=== PATIENT | male | born 1955 | race Caucasian/White ===

== ENCOUNTER 2022-04-25 15:22 | Emergency (ER) | payer OTHER, SELFPAY ==
--- NOTE | 2022-04-25 15:27 | ED.URI ---
HPI - URI/Sore Throat General Chief Complaint: Upper Respiratory Infection Stated Complaint: cold symptoms Time Seen by Provider: 04/25/22 15:27 Source: patient, family and RN notes reviewed History of Present Illness HPI Narrative: Patient is 66-year-old male who presents the urgent care with his spouse with complaints of head cold, ear pressure and cough. Patient states that the Mucinex seems to be helping however he needs something to make it go faster so he can get back to work . Patient states that he had 2 negative COVID test at home with the last test being yesterday. Patient states his symptoms started on Sunday. Denies any shortness of breath, nausea, vomiting, chest pain. Denies any known exposures. Patient denies of any fever or history of sinus surgeries. No other acute complaints. No acute distress noted. Patient and spouse aware of the plan of care. Some parts of this dictation were generated by voice recognition software and may contain typographical and/or grammatical inaccuracies. Related Data Home Medications Medication Instructions Recorded Confirmed atorvastatin 10 mg tablet 10 mg PO DAILY 06/06/21 08/04/21 metformin 500 mg tablet 500 mg PO BID 06/06/21 08/04/21 saxagliptin 5 mg tablet (Onglyza) 5 mg PO DAILY 06/06/21 08/04/21 Allergies Allergy/AdvReac Type Severity Reaction Status Date / Time No Known Allergies Allergy Verified 08/04/21 08:55 Review of Systems Review of Systems: CONSTITUTIONAL: Denies fever, chills, or sweats. EYES: Denies visual changes, redness, or discharge. ENT: Denies rhinorrhea, congestion, sore throat. Reports bilateral ear pressure CARDIOVASCULAR: Denies chest pain, palpitations, or edema. RESPIRATORY: Reports of cough without dyspnea GASTROINTESTINAL: Denies abdominal pain, nausea, vomiting, or diarrhea. GENITOURINARY: Denies dysuria or hematuria. SKIN: Denies rash or itching. MUSCULOSKELETAL: Denies back pain, joint pain, or myalgia. NEUROLOGIC: Denies headache, numbness, or weakness. All other systems reviewed are negative, except as documented in HPI. [facility] Past Medical History Medical History Diabetes mellitus Hypercholesterolemia Surgical History Surgical History History of excision of lesion right upper back skin lesion 07/19/22 Family History Family History Father Diabetes mellitus Skin cancer of nose Mother Ovarian cancer Sibling Malignant neoplasm of prostate Bladder cancer Esophageal cancer Social History Social History Smoking packs per day: 1 Smoking cigarettes per day: 20.0 Years smoked: 40 Smoking pack-years: 40.00 Smoking status: Never smoker Tobacco type: cigarettes Smoking end date: 12/21/20 Alcohol intake: current Comments At the time of my signature, I reviewed and agree with the nursing past medical, surgical, social, and family history. There is no relevant family history pertinent to the patient complaint. Exam Narrative: GENERAL: This is a well-nourished, well-developed patient, in no apparent distress. HEAD: normocephalic, atraumatic. EYES: PERRL. Sclera clear/white. Vision is grossly intact. EARS: External ears normal, auditory canals clear and without drainage, TMs normal without perforation. Hearing grossly intact. NOSE: External nose normal with no obvious nasal discharge, nares without redness, clear rhinorrhea. THROAT: Mucous membranes moist. Moderate postnasal drainage NECK: Neck supple, non-tender without lymphadenopathy CARDIOVASCULAR: Regular rate and rhythm without murmurs, gallops, or rubs. RESPIRATORY: Mild loose cough noted on exam. Clear to auscultation. Breath sounds equal bilaterally. No wheezes, rales, or rhonchi. SKIN: warm, intac
[2022-04-25 15:28] VITALS: BP 140/90; PULSE 99; RESP 20; TEMP 37.1; O2SAT 95
== END 2022-04-25 15:50 | disposition home or self-care (01) ==
PROVIDERS: Emergency Provider Nurse Practitioner Family
DX: J06.9 Acute upper respiratory infection, unspecified (principal); F17.210 Nicotine dependence, cigarettes, uncomplicated; E11.9 Type 2 diabetes mellitus without complications; E78.00 Pure hypercholesterolemia, unspecified; Z79.84 Long term (current) use of oral hypoglycemic drugs
CPT/HCPCS: 99213; G0463

== ENCOUNTER 2022-11-15 15:52 | Outpatient (CLI) | payer OTHER, SELFPAY ==
--- NOTE | ~2022-11-15 | CT_ITS ---
CT Scan of the Chest without Contrast: Clinical Indication: Other nonspecific abnormal finding of lung field, persistent right middle lobe i nfiltrate Technique: Contiguous sections were acquired throughout the chest without intravenous contrast. Dose reduction technique was used on this scan by utilizing automated exposure control and iterative recon struction technique. The dose-length product (DLP) was 228.15 mGy-cm. Findings: There is no evidence of any significant mediastinal, hilar or axillary lymphadenopathy. The mediastin al soft tissues appear normal. There is no evidence of pleural or pericardial effusion. There is moderate emphysema. There is chronic appearing atelectasis or scarring at the anteromedial r ight middle lobe. There is an 8 mm irregular nodular opacity at the left lower lobe (axial image 80). Images through the upper abdomen reveal no abnormalities. Impression: Moderate emphysema. Chronic appearing atelectasis or scarring at the anteromedial right middle lobe. 8 mm left lower lobe pulmonary nodule, as detailed above. According to Fleischner Society criteria, f or a low-risk patient, recommend 6-12 month follow-up CT, then consider additional 18-[address] Fo r a high-risk patient, follow-up CT scans at 6-12 months and at 18-24 months are recommended. Reviewed, dictated and finalized at location M. Impression: Moderate emphysema. Chronic appearing atelectasis or scarring at the anteromedial right middle lobe . 8 mm left lower lobe pulmonary nodule, as detailed above. According to Fleischn er Society criteria, for a low-risk patient, recommend 6-12 month follow-up CT, then consider additional 18-[address] For a high-risk patient, follow-up CT scans at 6-12 months and at 18-24 months are recommended.
== END 2022-11-15 15:53 ==
PROVIDERS: PCP Nurse Practitioner Family; Visit Provider Nurse Practitioner Family
DX: J43.9 Emphysema, unspecified (principal); J98.11 Atelectasis; R91.1 Solitary pulmonary nodule
CPT/HCPCS: 71250

== ENCOUNTER → 2023-07-26 14:53 | Outpatient (CLI) | payer OTHER, SELFPAY ==
--- NOTE | ~2023-07-26 | CT_ITS ---
EXAMINATION:CT diagnostic chest wo con DATE: 07/26/2023 15:05 INDICATION: Solitary pulmonary nodule. TECHNIQUE: Computed tomography (CT) of the chest was performed without intravenous contrast. Automate d exposure control and iterative reconstruction technique were employed. The dose-length product (DLP ) was 70.61 mGy-cm. COMPARISON: Chest CT 11/15/2022 FINDINGS: There is severe emphysema. There is minimal atelectasis bilaterally. There is a 3 mm nodule in left upper lobe, likely benign. No pleural effusion. The heart size is normal. There are coronary artery calcifications. No pericardial effusion. There is mild chronic anterior wedging of multiple t horacic vertebral bodies. There is severe mid thoracic spondylosis. IMPRESSION: 1. Interval resolution of the previously described left lower lobe pulmonary nodule. 2. Severe emphysema. Reviewed, dictated and finalized at location E. CO ARTIST IMPRESSION: 1. Interval resolution of the previously described left lower lobe pulmonary no dule. 2. Severe emphysema.
== END ==
PROVIDERS: PCP Nurse Practitioner Family; Visit Provider Nurse Practitioner Family
DX: R91.1 Solitary pulmonary nodule (principal); J43.9 Emphysema, unspecified
CPT/HCPCS: 71250

== ENCOUNTER 2023-11-30 17:57 | Emergency (ER) | payer OTHER, SELFPAY ==
[2023-11-30 18:14] VITALS: BP 119/76; PULSE 67; RESP 18; TEMP 35.9; O2SAT 96
--- NOTE | 2023-11-30 18:35 | ED.SKABFB ---
HPI - Skin/Abscess/Foreign Bdy General Chief complaint: Skin/Abscess/Foreign Body Stated complaint: suture removal Source: patient Mode of arrival: ambulatory Limitations: no limitations History of Present Illness HPI narrative: 67-year-old male presented for suture removal. Endorses 2 weeks ago had skin cancer lesion removed from the left forearm. Also states attempted to remove the sutures, she was able to remove 4, but some are embedded. Denies redness, swelling, drainage or fever. Related Data Allergies Allergy/AdvReac Type Severity Reaction Status Date / Time No Known Allergies Allergy Verified 11/30/23 18:25 Review of Systems Review of Systems: CONSTITUTIONAL: Denies body aches, fever, chills, or sweats. EYES: Denies visual changes, redness, or discharge. ENT: Denies rhinorrhea, congestion CARDIOVASCULAR: Denies chest pain, palpitations, or edema. RESPIRATORY: Denies cough or dyspnea. GASTROINTESTINAL: Denies abdominal pain, nausea, vomiting, or diarrhea. SKIN: sutures to be removed LFA MUSCULOSKELETAL: Denies back pain, joint pain, or myalgia. NEUROLOGIC: Denies headache, numbness, tingling, or weakness. [facility] Past Medical History Medical History Diabetes mellitus Hypercholesterolemia Surgical History Surgical History History of excision of lesion right upper back skin lesion 07/19/22 Family History Family History Father Diabetes mellitus Skin cancer of nose Mother Ovarian cancer Sibling Malignant neoplasm of prostate Bladder cancer Esophageal cancer Social History Social History Years smoked: 40 Smoking status: Never smoker Smoking end date: 12/21/20 Alcohol intake: current Lack of Transportation: No Lack of Food: Never True Current Housing: I Have Housing Concerned About Future Housing: No Difficulty Paying Gas/Electric Bills: No Difficulty Paying for Meds: No Currently Unemployed: No Education: Bachelor's Degree Difficulty w/ Childcare or Family Care: No Living arrangements: with family Occupation/Education: occupation Additional occupation/education comments: [employer] Gender identity (if verbalized by the patient): Male Agree to blood products: Yes Comments At time of signature, I have reviewed and agree with nursing past medical, surgical, social and family history unless otherwise noted. Please see nursing chart for further information. There is no relevant family history pertinent to the presenting complaint Exam Narrative: GENERAL: Well-appearing ENT: Mucous membranes moist. Oropharynx without edema, erythema or lesions. CHEST: Clear to auscultation. HEART: Regular rate and rhythm. SKIN: Warm, dry. Left distal forearm with 4 sutures remaining to incision wound, appears healing, edges not approximated at center wound bed pink, no active drainage. NEURO: Alert and oriented x3. Course Course Emergency Course: Patient is aware of diagnosis, understands and agrees to treatment plan. Anticipatory guidance given. Patient agrees to follow-up as directed and is aware of reasons to seek care at the emergency department. Portions of this record may have been created with voice recognition software Level of Care: Express Care Visit Vital Signs Vital signs: Vital Signs Temperature 96.6 F L 11/30/23 18:14 Pulse Rate 67 11/30/23 18:14 Respiratory Rate 18 11/30/23 18:14 Blood Pressure 119/76 11/30/23 18:14 Pulse Oximetry 96 11/30/23 18:14 Oxygen Delivery Room Air 11/30/23 18:14 Temperature 96.6 F L 11/30/23 18:14 Pulse Rate 67 11/30/23 18:14 Respiratory Rate 18 11/30/23 18:14 Blood Pressure 119/76 11/30/23 18:14 Pulse Oximetry
== END 2023-11-30 19:04 | disposition home or self-care (01) ==
PROVIDERS: Emergency Provider Nurse Practitioner Family
DX: Z48.02 Encounter for removal of sutures (principal); Z85.828 Personal history of other malignant neoplasm of skin; E11.9 Type 2 diabetes mellitus without complications; E78.00 Pure hypercholesterolemia, unspecified
CPT/HCPCS: 99211; G0463

== ENCOUNTER 2023-12-16 08:11 | Emergency (ER) | payer OTHER, SELFPAY ==
[2023-12-16 08:23] VITALS: BP 128/80; PULSE 70; RESP 18; TEMP 36.3; O2SAT 99
[2023-12-16] MEDS: FLUORESCEIN SOD 1 MG/STRIP RIGHT EYE (08:43)
[2023-12-16] MEDS: TETRACAINE HCL 0.5% OPHTH SOLN 4 ML BTL 1 DROP RIGHT EYE (08:43)
[2023-12-16] MEDS: DACRIOSE EYE IRRIGATION 118 ML BOTTLE RIGHT EYE (08:43)
--- NOTE | 2023-12-16 08:52 | ED.EYEPROB ---
HPI - Eye Problem General Chief complaint: Eye Problems Stated complaint: something in rt eye Time Seen by Provider: 12/16/23 08:39 Source: patient and RN notes reviewed Mode of arrival: ambulatory Limitations: no limitations History of Present Illness HPI Narrative: Patient presents today complaining of possible foreign body to the right eye since yesterday after he was mulching at home. He has tried flushing copiously with water without relief of symptoms. Denies vision changes or drainage. He does wear glasses. Visual acuity upon arrival was right eye 20/25, left eye 20/30 with glasses. Related Data Allergies Allergy/AdvReac Type Severity Reaction Status Date / Time No Known Allergies Allergy Verified 12/16/23 08:27 Review of Systems Review of Systems: CONSTITUTIONAL: Denies body aches, fever, chills, or sweats. EYES: Denies visual changes, redness, or discharge.+ right eye foreign body sensation ENT: Denies rhinorrhea, congestion, sore throat, or otalgia. CARDIOVASCULAR: Denies chest pain, palpitations, or edema. RESPIRATORY: Denies cough or dyspnea. GASTROINTESTINAL: Denies abdominal pain, nausea, vomiting, or diarrhea. GENITOURINARY: Denies dysuria or hematuria. SKIN: Denies rash, itching, or wounds. MUSCULOSKELETAL: Denies back pain, joint pain, or myalgia. NEUROLOGIC: Denies headache, numbness, tingling, or weakness. PSYCH: Denies depression or anxiety. [facility] Past Medical History Medical History Diabetes mellitus Hypercholesterolemia Surgical History Surgical History History of excision of lesion right upper back skin lesion 07/19/22 Family History Family History Father Diabetes mellitus Skin cancer of nose Mother Ovarian cancer Sibling Malignant neoplasm of prostate Bladder cancer Esophageal cancer Social History Social History Years smoked: 40 Smoking status: Never smoker Smoking end date: 12/21/20 Alcohol intake: current Lack of Transportation: No Lack of Food: Never True Current Housing: I Have Housing Concerned About Future Housing: No Difficulty Paying Gas/Electric Bills: No Difficulty Paying for Meds: No Currently Unemployed: No Education: Bachelor's Degree Difficulty w/ Childcare or Family Care: No Living arrangements: with family Occupation/Education: occupation Additional occupation/education comments: [employer] Gender identity (if verbalized by the patient): Male Agree to blood products: Yes Comments At time of signature, I have reviewed and agree with nursing past medical, surgical, social and family history unless otherwise noted. Please see nursing chart for further information. There is no relevant family history pertinent to the presenting complaint Exam Narrative: GENERAL: Well-appearing, well-nourished, and in no acute distress. HEAD: Normocephalic, atraumatic. EYES: EOMI. PERRL. No redness or drainage. Conjunctivae normal. Right eye: Fluorescein uptake. See procedure note. Left eye normal ENT: Mucous membranes pink and moist. NECK: Normal AROM. CHEST: No respiratory distress. EXTREMITIES: Normal range of motion. No edema. SKIN: Warm, dry, no rash. Capillary refill normal. Normal skin turgor. NEURO: No focal deficits. Alert and oriented x3. Gait steady. PSYCH: Normal affect. No signs of depression or anxiety. Course Course Level of Care: Express Care Visit Vital Signs Vital signs: Vital Signs Temperature 97.4 F L 12/16/23 08:23 Pulse Rate 70 12/16/23 08:23 Respiratory Rate 18 12/16/23 08:23 Blood Pressure 128/80 12/16/23 08:23 Pulse Oximetry 99 12/16/23 08:23 Oxygen Delivery Room Air 12/16/23 08:23 Te
== END 2023-12-16 08:58 | disposition home or self-care (01) ==
PROVIDERS: Emergency Provider Nurse Practitioner
DX: S05.01XA Injury of conjunctiva and corneal abrasion without foreign body, right eye, initial encounter (principal); X58.XXXA Exposure to other specified factors, initial encounter; E11.9 Type 2 diabetes mellitus without complications; E78.00 Pure hypercholesterolemia, unspecified; Z87.891 Personal history of nicotine dependence
CPT/HCPCS: 99213; A9270; G0463

== ENCOUNTER 2024-08-10 11:44 | Emergency (ER) | payer OTHER, SELFPAY ==
[2024-08-10 11:55] VITALS: BP 115/79; PULSE 79; RESP 16; TEMP 36.9; O2SAT 97
--- NOTE | 2024-08-10 12:44 | ED.URI ---
HPI - URI/Sore Throat General Chief Complaint: Upper Respiratory Infection Stated Complaint: Cold Symptoms Time Seen by Provider: 08/10/24 12:21 Source: patient and RN notes reviewed Mode of arrival: ambulatory Limitations: no limitations History of Present Illness HPI Narrative: Patient presents today with a 3 day history of nasal congestion, productive cough, headache, ear pain. Denies sore throat, fever, shortness of breath, chest pain. He has been taking some Sudafed with mild relief. History of diabetes for which he takes Jardiance and Onglyza as well as emphysema. States his was sick last week and likely spread her illness to him. She recently got a prescription for Medrol Dosepak and a Z-Juan. He is requesting a prescription for both. Patient did a home COVID test that was negative Related Data Allergies Allergy/AdvReac Type Severity Reaction Status Date / Time No Known Allergies Allergy Verified 08/10/24 12:04 Review of Systems Review of Systems: CONSTITUTIONAL: Denies body aches, fever, chills, or sweats. EYES: Denies visual changes, redness, or discharge. ENT: Denies rhinorrhea, sore throat. + congestion, bilateral ear pain CARDIOVASCULAR: Denies chest pain, palpitations, or edema. RESPIRATORY: Denies dyspnea.+ cough GASTROINTESTINAL: Denies abdominal pain, nausea, vomiting, or diarrhea. GENITOURINARY: Denies dysuria or hematuria. SKIN: Denies rash, itching, or wounds. MUSCULOSKELETAL: Denies back pain, joint pain, or myalgia. NEUROLOGIC: Denies numbness, tingling, or weakness.+ headache PSYCH: Denies depression or anxiety. [facility] Past Medical History Medical History Basal cell carcinoma of upper back Hypercholesterolemia Diabetes mellitus Surgical History Surgical History History of excision of lesion right upper back skin lesion 07/19/22 Family History Family History Father Diabetes mellitus Skin cancer of nose Mother Ovarian cancer Sibling Malignant neoplasm of prostate Bladder cancer Esophageal cancer Social History Social History Years smoked: 40 Smoking status: Never smoker Smoking end date: 12/21/20 Alcohol intake: current Lack of Transportation: No Lack of Food: Never True Current Housing: I Have Housing Concerned About Future Housing: No Difficulty Paying Gas/Electric Bills: No Difficulty Paying for Meds: No Currently Unemployed: No Education: Bachelor's Degree Difficulty w/ Childcare or Family Care: No Living arrangements: with family Occupation/Education: occupation Additional occupation/education comments: [employer] Gender identity (if verbalized by the patient): Male Agree to blood products: Yes Comments At time of signature, I have reviewed and agree with nursing past medical, surgical, social and family history unless otherwise noted. Please see nursing chart for further information. There is no relevant family history pertinent to the presenting complaint Exam Narrative: GENERAL: Well-appearing, well-nourished, and in no acute distress. HEAD: Normocephalic, atraumatic. EYES: EOMI. No redness or drainage. Conjunctivae normal. ENT: Mucous membranes pink and moist. Nares congested. Bilateral nasal turbinates are erythematous and mildly edematous. TMs normal bilaterally. Throat normal. Uvula midline. NECK: Normal AROM. Supple. No lymphadenopathy. CHEST: No respiratory distress. Clear to auscultation. HEART: Regular rate and rhythm. No murmur appreciated. EXTREMITIES: Normal range of motion. No edema. SKIN: Warm, dry, no rash. Capillary refill normal. Normal skin turgor. NEURO: No focal deficits. Alert and oriented x3. Gait steady. PSYCH: Normal affect. No signs of depression or anxiety. Course Course Level of Care: Express Care Visit Vital Signs Vital signs: Vital Signs Temperature 98.4 F 08/10/24 11:55 Pulse Rate 79 08/10/24 11:55 Respiratory Rate 16 08/10/24 11:55 Blood Pressure 115/79 08/10/24 11:55 Pulse Oximetry 97 08/10/24 11:55 Temperature 98.4 F 08/10/24 11:55 Pulse Rate 79 08/10/24 11:55 Respiratory Rate 16 08/10/24 11:55 Blood Pressure 115/79 08/10/24 11:55 Pulse Oximetry 97 08/10/24 11:55 Reviewed MDM - URI/Sore Throat MDM Narrative Medical decision making narrative: Patient declines testing for influenza. Discussed [id number] medication use and duration of illness. Discussed hyperglycemia side effect of prednisone. He declines prescription at this time. Discussed that symptoms are likely viral in etiology, and when to follow-up if symptoms persist. Patient agrees with plan. Anticipatory guidance given. ED precautions given. Differential Diagnosis Differential diagnosis: Likely upper respiratory infection, otitis media, sinusitis, viral infection and bronchitis Critical Care Time Critical Care Time Critical Care Time: No Discharge Plan Discharge Clinical Impression: Upper respiratory infection Qualifiers: URI type: unspecified URI Qualified Code(s): J06.9 - Acute upper respiratory infection, unspecified Patient Disposition: Home, Self-Care Condition: Stable Instructions: Upper Respiratory Infection (DC) Additional Instructions: Your symptoms are likely due to a viral illness, which is not treated with antibiotics. Virus symptoms can last for up to 7-10days. Take Tylenol or ibuprofen for pain or fever. Consider a decongestant such as Sudafed and a steroid nasal spray such as Flonase to help with your congestion. Rest and stay hydrated. Follow up with your PCP in 7 days if symptoms are not improving. Go to the ER immediately if you develop shortness of breath, difficulty swallowing, or any other concerning symptoms. Patient Language: Palestinian Prescriptions: No Action (DME) blood-glucose meter Misc See Rx Instructions .MEDSUPPLY Qty: 1 0RF Rx Instructions: As directed (DME) lancets Misc See Rx Instructions .MEDSUPPLY Qty: 100 2RF Rx Instructions: Use once daily to check blood sugar (DME) OneTouch Ultra Test Strip See Rx Instructions .ROUTE .COMPLEX Qty: 100 1RF Dose Instruction: CHECK BLOOD SUGAR DAILY Rx Instructions: CHECK BLOOD SUGAR DAILY Jardiance 25 mg tablet See Rx Instructions .ROUTE .COMPLEX Qty: 90 1RF Dose Instruction: TAKE 1 TABLET BY MOUTH EVERY MORNING Rx Instructions: TAKE 1 TABLET BY MOUTH EVERY MORNING atorvastatin 20 mg tablet See Rx Instructions .ROUTE .COMPLEX Qty: 90 1RF Dose Instruction: TAKE 1 TABLET BY MOUTH EVERY DAY AT BEDTIME Rx Instructions: TAKE 1 TABLET BY MOUTH EVERY DAY AT BEDTIME fluticasone propion-salmeterol [Wixela Inhub] 250-50 mcg/dose blister with device 1 inh inhalation BID Qty: 60 0RF metformin 500 mg tablet extended release 24 hr 1,000 mg PO BID Qty: 360 1RF Onglyza 5 mg tablet 5 mg PO DAILY Qty: 90 0RF Follow-up/Referrals: PHYSICIAN,EXPORT CLERK [Primary Care Provider] - Time of Disposition: 12:32
== END 2024-08-10 12:38 | disposition home or self-care (01) ==
PROVIDERS: Emergency Provider Nurse Practitioner
DX: J06.9 Acute upper respiratory infection, unspecified (principal); E11.9 Type 2 diabetes mellitus without complications; Z79.84 Long term (current) use of oral hypoglycemic drugs; J43.9 Emphysema, unspecified; E78.00 Pure hypercholesterolemia, unspecified; Z85.828 Personal history of other malignant neoplasm of skin; Z87.891 Personal history of nicotine dependence
CPT/HCPCS: 99211; G0463

== ENCOUNTER 2024-09-10 11:01 | Emergency (ER) | payer OTHER, SELFPAY ==
[2024-09-10 11:11] VITALS: BP 114/76; PULSE 80; RESP 16; TEMP 36.6; O2SAT 98
--- NOTE | 2024-09-10 11:25 | ED_ITS ---
HPI - URI/Sore Throat General Chief Complaint: Upper Respiratory Infection Stated Complaint: CHEST COLD Time Seen by Provider: 09/10/24 11:25 Source: patient Mode of arrival: ambulatory Limitations: no limitations History of Present Illness HPI Narrative: 68-year-old male presents with complaint of cough and chest congestion for 2 days. Afebrile. No chest pain or shortness of breath. Does not want any COVID or influenza testing. Patient is concerned that chest congestion is going to go up into his sinuses 9 cause sinus infection. Requesting antibiotic prior to going out of town. All systems reviewed and negative except as noted above. Related Data Allergies Allergy/AdvReac Type Severity Reaction Status Date / Time No Known Allergies Allergy Verified 09/10/24 11:13 Review of Systems Review of Systems: CONSTITUTIONAL: Denies fever, chills, or sweats. Reports fatigue. EYES: Denies visual changes, redness, or discharge. ENT: Denies rhinorrhea, congestion, sore throat, or otalgia. CARDIOVASCULAR: Denies chest pain, palpitations, or edema. RESPIRATORY: Reports cough, chest congestion. Denies dyspnea. GASTROINTESTINAL: Denies abdominal pain, nausea, vomiting, or diarrhea. GENITOURINARY: Denies dysuria or hematuria. SKIN: Denies rash or itching. MUSCULOSKELETAL: Denies back pain, joint pain, or myalgia. NEUROLOGIC: Denies headache, numbness, or weakness. PSYCHIATRIC: Denies anxiety or depression. All other systems reviewed are negative, except as documented in HPI. [facility] Past Medical History Medical History Basal cell carcinoma of upper back Hypercholesterolemia Diabetes mellitus Surgical History Surgical History History of excision of lesion right upper back skin lesion 07/19/22 Family History Family History Father Diabetes mellitus Skin cancer of nose Mother Ovarian cancer Sibling Malignant neoplasm of prostate Bladder cancer Esophageal cancer Social History Social History Years smoked: 40 Smoking status: Never smoker Smoking end date: 12/21/20 Alcohol intake: current Lack of Transportation: No Lack of Food: Never True Current Housing: I Have Housing Concerned About Future Housing: No Difficulty Paying Gas/Electric Bills: No Difficulty Paying for Meds: No Currently Unemployed: No Education: Bachelor's Degree Difficulty w/ Childcare or Family Care: No Living arrangements: with family Occupation/Education: occupation Additional occupation/education comments: [employer] Gender identity (if verbalized by the patient): Male Agree to blood products: Yes Comments At time of signature, agree with nursing past medical, surgical, social and family history. There is no relevant family history pertinent to the presenting complaint. Exam Narrative: GENERAL: This is a well-nourished, well-developed patient, in no apparent distress. HEAD: normocephalic, atraumatic. EYES: PERRL. Sclera clear/white. Vision is grossly intact. EARS: External ears normal, auditory canals clear and without drainage, TMs normal without perforation. Hearing grossly intact. NOSE: External nose normal with no obvious nasal discharge, nares without redness, no rhinorrhea. THROAT: Mucous membranes moist, posterior pharynx clear. NECK: Neck supple, non-tender without lymphadenopathy, masses or thyromegaly. CARDIOVASCULAR: Regular rate and rhythm without murmurs, gallops, or rubs. RESPIRATORY: Clear to auscultation. Breath sounds equal bilaterally. No wheezes, rales, or rhonchi. SKIN: warm, Dry, intact with no suspicious lesions or rash, good texture and turgor. NEURO: awake, alert, and oriented to person, place and time. There were no obvious focal neurologic abnormalities. EXTREMITIES: No joint tenderness, effusion, or edema noted. Course Course Level of Care: Express Care Visit Vital Signs Vital signs: Vital Signs Temperature 36.6 C 09/10/24 11:11 Pulse Rate 80 09/10/24 11:11 Respiratory Rate 16 09/10/24 11:11 Blood Pressure 114/76 09/10/24 11:11 Pulse Oximetry 98 09/10/24 11:11 Temperature 36.6 C 09/10/24 11:11 Pulse Rate 80 09/10/24 11:11 Respiratory Rate 16 09/10/24 11:11 Blood Pressure 114/76 09/10/24 11:11 Pulse Oximetry 98 09/10/24 11:11 Reviewed MDM - URI/Sore Throat MDM Narrative Medical decision making narrative: Patient is well-appearing. Lungs clear to auscultation. Afebrile. Refusing COVID and influenza testing. Patient admit that he is prescribed an antibiotic to treat his cough. Antibiotic education given. Please be advised this is a medical document. It is intended for [id number] communication. It is written in medical language and may contain unfamiliar abbreviations or verbiage. Medical documents are intended to carry relevant information, facts as evident, and the clinical opinion of the practitioner at the time of the encounter. This report may have been done utilizing a voice recognition system. Attempts have been made to correct errors. However, there may be uncorrected grammatical, spelling, and recognition errors present. The file time of this note does not necessarily represent the time of service. Differential Diagnosis Differential diagnosis: Likely upper respiratory infection, viral infection, influenza and other (COVID-19) Discharge Plan Discharge Clinical Impression: Acute bronchitis Patient Disposition: Home, Self-Care Condition: Stable Instructions: Antibiotic Form, Acute Bronchitis (ED) Additional Instructions: Take medication as prescribed. Purchase [id number] Mucinex and take as directed on packaging. Take Tylenol every 6-8 hours as needed for pain and fever. Drink at least 64 oz of water a day. Place cool mist humidifier in bedroom where you sleep. Follow-up with your doctor if symptoms are not improving. Patient Language: Cymraes Prescriptions: New doxycycline hyclate 100 mg capsule 100 mg PO BID 7 Days Qty: 14 0RF benzonatate 200 mg capsule 200 mg PO TID PRN (Reason: cough) Qty: 20 0RF No Action (DME) blood-glucose meter Misc See Rx Instructions .MEDSUPPLY Qty: 1 0RF Rx Instructions: As directed (DME) lancets Misc See Rx Instructions .MEDSUPPLY Qty: 100 2RF Rx Instructions: Use once daily to check blood sugar Jardiance 25 mg tablet See Rx Instructions .ROUTE .COMPLEX Qty: 90 1RF Dose Instruction: TAKE 1 TABLET BY MOUTH EVERY MORNING Rx Instructions: TAKE 1 TABLET BY MOUTH EVERY MORNING atorvastatin 20 mg tablet See Rx Instructions .ROUTE .COMPLEX Qty: 90 1RF Dose Instruction: TAKE 1 TABLET BY MOUTH EVERY DAY AT BEDTIME Rx Instructions: TAKE 1 TABLET BY MOUTH EVERY DAY AT BEDTIME metformin 500 mg tablet extended release 24 hr 1,000 mg PO BID Qty: 360 1RF saxagliptin 5 mg tablet 5 mg PO DAILY Qty: 90 0RF (DME) OneTouch Ultra Test Strip See Rx Instructions .ROUTE .COMPLEX Qty: 100 1RF Dose Instruction: CHECK BLOOD SUGAR DAILY Rx Instructions: CHECK BLOOD SUGAR DAILY Follow-up/Referrals: Kay Haile APNLalaC [Primary Care Provider] - Time of Disposition: 11:33
== END 2024-09-10 11:37 | disposition home or self-care (01) ==
PROVIDERS: Emergency Provider Nurse Practitioner Family; PCP Nurse Practitioner Family
DX: J20.9 Acute bronchitis, unspecified (principal); Z87.891 Personal history of nicotine dependence; E11.9 Type 2 diabetes mellitus without complications; E78.00 Pure hypercholesterolemia, unspecified; Z85.828 Personal history of other malignant neoplasm of skin
CPT/HCPCS: 99213; G0463